=== PATIENT | male | born 1960 | race Caucasian/White ===

== ENCOUNTER 2018-03-03 08:19 | Emergency (ER) | payer BC, OTHER ==
[~2018-03-03] VITALS: Ht 175.3 cm; Wt 70.4 kg
[2018-03-03 08:23] VITALS: TEMP 36.4; Ht 175.3 cm; Wt 70.4 kg
[2018-03-03] MEDS ORDERED: SODIUM CHLORIDE 0.9% 1000ML 1,000 ML IV STA ×2 (08:56→10:46)
[2018-03-03 09:07] LABS: BASO % 0.5 %; BASO ABS # 0.03 K/uL (0-0.2); EOS % 1.9 %; EOS ABS # 0.12 K/uL (0-0.5); HEMATOCRIT 45.5 % (42-52); HEMOGLOBIN 16.1 g/dL (14.0-18.0); IG# 0.05 K/uL (0.00-0.02); LYMPH % 21.2 %; LYMPH ABS # 1.36 K/uL (1.2-3.4); MEAN CELL VOLUME 89.6 fL (80-100); MEAN CORPUSCULAR HEMOGLOBIN 31.7 pg (25-34); MEAN CORPUSCULAR HGB CONC 35.4 g/dl (32-36); MEAN PLATELET VOLUME 10.5 fL (7.4-10.4); MONO % 7.5 %; MONO ABS # 0.48 K/uL (0.11-0.59); NEUT % 68.1 %; NEUT ABS # 4.39 K/uL (1.4-6.5); PLATELET COUNT 226 K/uL (130-400); RED CELL DISTRIBUTION WIDTH CV 12.4 % (11.5-14.5); RED CELL DISTRIBUTION WIDTH SD 40.7 fL (36.4-46.3); WHITE BLOOD COUNT 6.43 K/uL (4.8-10.8)
[2018-03-03 09:15] LABS: CREATININE 0.96 mg/dl (0.60-1.40)
--- NOTE | 2018-03-03 11:55 | EMERGENCY ROOM VISIT NOTE ---
History Report prepared by Keyla: Brigida Morris Under the Supervision of: Dr. Dave Christian D.O. First contact with patient: 08:29 Chief Complaint: URINARY SYMPTOMS Stated Complaint: CANNOT PEE History of Present Illness The patient is a 57 year old male who presents to the Emergency Room with complaints of persistent urinary retention which began this morning. He reports that today when he woke up, he felt like he needed to urinate but was unable to. The patient states that the last time he urinated was last night at about 2100. He denies any other urinary symptoms. The patient mentioned that for the past several weeks, he has been experiencing some bleeding after sexual intercourse, noting that he had similar symptoms a few years ago but his urologist did not diagnose him with anything. Source of History: patient Onset: this morning Position: other (genitourinary) Quality: other (urinary retention) Timing: other (persistent) Associated Symptoms: No urinary symptoms Review of Systems See HPI for pertinent positives & negatives. A total of 10 systems reviewed and were otherwise negative. Past Medical & Surgical Surgical Problems: (1) Cataract Family History Patient reports no known family medical history. No pertinent family history. Social History Smoking Status: Never Smoker Smokeless Tobacco Use: No Alcohol Use: none Drug Use: none Marital Status: Housing Status: lives with family Occupation Status: employed Current/Historical Medications No Active Prescriptions or Reported Meds Allergies Coded Allergies: Penicillins (Unverified Adverse Reaction, Unknown, UNKNOWN, 03/03/18) Physical Exam Vital Signs Date Time Temp Pulse Resp B/P (MAP) Pulse Ox O2 Delivery O2 Flow Rate FiO2 03/03/18 10:25 63 120/68 98 Room Air 03/03/18 08:23 36.4 79 18 158/84 99 Room Air Physical Exam CONSTITUTIONAL/VITAL SIGNS: Reviewed / noted above. GENERAL: Non-toxic in appearance. INTEGUMENTARY: Warm, dry, and [place]. HEAD: Normocephalic. EYES: without scleral icterus or trauma. ENT/OROPHARYNX: clear and moist. LYMPHADENOPATHY/NECK: Is supple without lymphadenopathy or meningismus. RESPIRATORY: Lungs clear and equal. CARDIOVASCULAR: Regular rate and rhythm. GI/ABDOMEN: Soft and nontender. No organomegaly or pulsatile mass. No rebound or guarding. Normal bowel sounds. EXTREMITIES: Warm and well perfused. BACK: No CVA tenderness. NEUROLOGICAL: Intact without focal deficits. PSYCHIATRIC: normal affect. MUSCULOSKELETAL: Normally developed with good muscle tone. Medical Decision & Procedures Laboratory Results 03/03/18 08:40 Red Blood Count 5.08, Mean Corpuscular Volume 89.6, Mean Corpuscular Hemoglobin 31.7, Mean Corpuscular Hemoglobin Concent 35.4, Mean Platelet Volume 10.5, Neutrophils (%) (Auto) 68.1, Lymphocytes (%) (Auto) 21.2, Monocytes (%) (Auto) 7.5, Eosinophils (%) (Auto) 1.9, Basophils (%) (Auto) 0.5, Neutrophils # (Auto) 4.39, Lymphocytes # (Auto) 1.36, Monocytes # (Auto) 0.48, Eosinophils # (Auto) 0.12, Basophils # (Auto) 0.03 03/03/18 08:40 Test 03/03/18 08:40 03/03/18 08:55 White Blood Count 6.43 K/uL (4.8-10.8) Red Blood Count 5.08 M/uL (4.7-6.1) Hemoglobin 16.1 g/dL (14.0-18.0) Hematocrit 45.5 % (42-52) Mean Corpuscular Volume 89.6 fL (80-100) Mean Corpuscular Hemoglobin 31.7 pg (25-34) Mean Corpuscular Hemoglobin Concent 35.4 g/dl (32-36) Platelet Count 226 K/uL (130-400) Mean Platelet Volume 10.5 fL (7.4-10.4) Neutrophils (%) (Auto) 68.1 % Lymphocytes (%) (Auto) 21.2 % Monocytes (%) (Auto) 7.5 % Eosinophils (%) (Auto) 1.9 % Basophils (%) (Auto) 0.5 % Neutrophils # (Auto) 4.39 K/uL (1.4-6.5) Lymphocytes # (Auto) 1.36 K/uL (1.2-3.4) Monocytes # (Auto) 0.48 K/uL (0.11-0.59) Eosinophils # (Auto) 0.12 K/uL (0-0.5) Basophils # (Auto) 0.03 K/uL (0-0.2) RDW Standard Deviation 40.7 fL (36.4-46.3) RDW Coefficient of Variation 12.4 % (11.5-14.5) Immature Granulocyte % (Auto) 0.8 % Immature Granulocyte # (Auto) 0.05 K/uL (0.00-0.02) Anion Gap 7.0 mmol/L (3-11) Est Creatinine Clear Calc Drug Dose 82.5 ml/min Estimated GFR () 99.9 Estimated GFR (Non- 86.2 BUN/Creatinine Ratio 19.6 (10-20) Calcium Level 9.0 mg/dl (8.5-10.1) Urine Color BROWN Urine Appearance CLOUDY (CLEAR) Urine pH 6.0 (4.5-7.5) Urine Specific [place] 1.020 (1.000-1.030) Urine Protein 2+ (NEG) Urine Glucose (UA) NEG (NEG) Urine Ketones TRACE (NEG) Urine Occult Blood 3+ (NEG) Urine Nitrite NEG (NEG) Urine Bilirubin NEG (NEG) Urine Urobilinogen NEG (NEG) Urine Leukocyte Esterase NEG (NEG) Urine RBC >30 /hpf (0-4) Urine WBC 1-5 /hpf (0-5) Urine Epithelial Cells 10-20 /lpf (0-5) Urine Bacteria NEG (NEG) Laboratory results as stated above per my review. Medications Administered Medications (Trade) Dose Ordered Sig/Amalia Route Start Time Stop Time Status Last Admin Dose Admin Sodium Chloride 1,000 ml @ 999 mls/hr Q1H1M STAT IV 03/03/18 08:56 03/03/18 09:56 DC 03/03/18 08:56 999 MLS/HR Sodium Chloride 1,000 ml @ 999 mls/hr Q1H1M STAT IV 03/03/18 10:46 03/03/18 11:46 DC 03/03/18 10:46 999 MLS/HR ED Course 0831: Previous medical records were reviewed. The patient was evaluated in room B12. A complete history and physical examination was performed. 0856: Ordered Sodium Chloride 1000ml @ 999 mls/hr IV. 1046: Ordered Sodium Chloride 1000ml @ 999 mls/hr IV. Medical Decision The patient is a 57 year old male who presents to the ED with complaints of urinary retention. His symptoms are concerning for urinary tract infection, bladder or prostate cancer, prostate enlargement, urethral trauma, kidney infection, and kidney stones. This is a 57-year-old male who presents to the ED with a chief complaint of urinary retention. The patient reports that he developed symptoms this morning. Last night he had intercourse with his and developed the symptoms thereafter. He has had hematuria following intercourse for some time. This was intermittent in nature. He has seen a urologist for this in the past and has been told it was nothing serious. The patient developed urinary retention following the episode last night. He had 750 cc of urine in the bladder on bladder scan. A Velasquez catheter drained about that much urine that was brownish in color and then became slightly light red in color. The urine did not show to suggest infection but revealed 3+ blood. CBC and PRP were normal and a glucose is 127. The patient was given a second liter of fluid and a Velasquez catheter was removed to see if the patient was able to urinate while here. He again was having urinary retention and a catheter was replaced and the patient was discharged with this. We contacted the [facility] urology group who will call him with an appointment for next week. The patient is felt to be stable for discharge. Medication Reconcilliation Current Medication List: was personally reviewed by me Blood Pressure Screening Patient's blood pressure: Normal blood pressure Blood pressure disposition: Did not require urgent referral Impression Primary Impression: Urinary retention Additional Impression: Hematuria Scribe Attestation The scribe's documentation has been prepared under my direction and personally reviewed by me in its entirety. I confirm that the note above accurately reflects all work, treatment, procedures, and medical decision making performed by me. Departure Information Dispostion Home / Self-Care Prescriptions No Active Prescriptions or Reported Meds Referrals Lili Arreaga MD Forms HOME CARE DOCUMENTATION FORM, IMPORTANT VISIT INFORMATION Patient Instructions ED Catheter Care Eileen Velasquez [facility] Additional Instructions Follow-up with [facility] urology next week. They will contact you with an appointment. Problem Qualifiers
[2018-03-03 12:24] VITALS: BP 129/68; PULSE 71; O2SAT 99
== END 2018-03-03 12:22 | disposition home or self-care (01) ==
LOC: C.EDB 08:20
DX: R33.9 Retention of urine, unspecified (principal); R31.9 Hematuria, unspecified; Z88.0 Allergy status to penicillin

== ENCOUNTER 2018-03-04 11:16 | Emergency (ER) | payer BC ==
[~2018-03-04] VITALS: Ht 175.3 cm; Wt 70.5 kg
[2018-03-04 11:18] VITALS: TEMP 36.5; Ht 175.3 cm; Wt 70.5 kg
[2018-03-04 12:29] VITALS: BP 148/60; PULSE 70; O2SAT 99
--- NOTE | 2018-03-04 15:24 | EMERGENCY ROOM VISIT NOTE ---
ED Visit Note First contact with patient: 11:22 CHIEF COMPLAINT: Unable to urinate. HISTORY OF PRESENT ILLNESS: Mr. Vaughn is a 57-year-old white male who ambulates into the ED accompanied by his complaining of inability to urinate. Historically patient was seen in this emergency department yesterday for similar symptoms. A Velasquez catheter was placed and laboratory testing was performed; all his laboratory tests were normal. He was discharged home in stable condition and a follow-up appointment with urology was made for this coming Tuesday. Patient reports then this morning of few hours prior to arrival at the hospital he started developing centralized lower abdominal pain and distention. He attempted multiple efforts to relieve himself and was unsuccessful. He goes on to report that on the drive here he was able to urinate and relieved his discomfort. On my initial evaluation patient was pain and symptom-free. The only thing he has noted was the passage of some small clots in his urine. He denies fevers, chills, sweats, skin eruptions, skin color changes, upper respiratory tract symptoms, chest pain, abdominal pain, nausea/vomiting, back/ flank pain, rectal/genital paresthesias, bowel dysfunction, diarrhea. REVIEW OF SYSTEMS: As noted above in History of Present Illness; all body systems reviewed with the patient and found to be negative unless noted above. PAST MEDICAL HISTORY: Status post cataract removal. CURRENT MEDICATION: Patient denies. ALLERGIES TO MEDICATION: Penicillin. SOCIAL HISTORY: Patient is currently employed; he feels safe in his home environment; he admits to tobacco and alcohol use. PHYSICAL EXAM: Vital Signs: Date Time Temp Pulse Resp B/P (MAP) Pulse Ox O2 Delivery O2 Flow Rate FiO2 03/04/18 12:29 70 20 148/60 99 03/04/18 11:18 36.5 87 18 151/82 97 Room Air GENERAL: 57-year-old male in no acute distress, nontoxic-appearing, afebrile and hemodynamically stable. NEUROLOGICAL: Awake, alert and oriented to person, place and time. Answering questions appropriately and following commands. Normal gait. Good hand eye coordination. SKIN: Warm, dry and pink. No soft tissue eruptions or trauma noted. HEENT: Atraumatic and normocephalic. BACK: No tenderness over the bony spine. No CVA tenderness. THORAX: Lungs sounds are clear to auscultation and equal bilaterally with symmetrical chest wall. ABDOMEN: Flat, soft and nontender. Positive bowel sounds in all quadrants. No guarding, rigidity or organomegaly. EXTREMITIES: Moves all extremities well on command and with purpose. All distal neurovascular statuses are intact and equal bilaterally. No calf tenderness or cords. EMERGENCY DEPARTMENT COURSE: Patient is assessed as noted above. Patient's medication list was reviewed. Bladder Scan: 175 mL. Patient's catheter was irrigated with 500 mL of normal saline; 500 mL of saline was returned. Patient's case was reviewed with Dr. Feliz; we agreed on diagnostic approach, treatment, disposition and plan. Patient was educated about today's findings and instructed on his treatment plan ; he verbalized understanding and agreement with this plan per CLINICAL IMPRESSION: Acute urinary retention DISPOSITION: Patient discharged home in stable condition accompanied by his ; prior to departure he was reassessed and remained pain and symptom-free. PLAN: Patient was encouraged to continue medications. Patient was encouraged to keep his upcoming appointment with urology on Tuesday for definitive care and treatment. Patient was encouraged to continue to stay well-hydrated with increased clear fluids. Patient was encouraged return the ED for lower abdominal distention, fevers, back/flank pain, vomiting or any new/concerning symptoms.
[2018-03-05] MEDS ORDERED: CIPR-255 PO (14:35)
[2018-03-05] MEDS ORDERED: TAMS0.4C38 PO (14:35)
== END 2018-03-04 12:29 | disposition home or self-care (01) ==
LOC: C.EDB 11:17
DX: R33.9 Retention of urine, unspecified (principal); Z98.49 Cataract extraction status, unspecified eye; Z88.0 Allergy status to penicillin; Z72.0 Tobacco use

== ENCOUNTER 2018-03-05 13:05 | Emergency (ER) | payer BC ==
[~2018-03-05] VITALS: Ht 175.3 cm; Wt 69.3 kg
[2018-03-05 13:09] VITALS: TEMP 36.5; Ht 175.3 cm; Wt 69.3 kg
[2018-03-05] MEDS ORDERED: CIPROFLOXACIN 500 MG TAB PO STA (13:22)
[2018-03-05] MEDS ORDERED: TAMSULOSIN HCL 0.4 MG CAP PO ONE (13:30)
[2018-03-05] MEDS ORDERED: CIPROFLOXACIN 500MG HOME PACK PO ONE (13:30)
[2018-03-05] MEDS ORDERED: CIPR-255 PO (14:35)
[2018-03-05] MEDS ORDERED: TAMS0.4C38 PO (14:35)
[2018-03-05 14:58] VITALS: BP 141/82; PULSE 66; O2SAT 98
--- NOTE | 2018-03-05 15:40 | EMERGENCY ROOM VISIT NOTE ---
History Report prepared by Keyla: William Brown Under the Supervision of: Dr. Vishnu Feliz M.D. First contact with patient: 13:14 Chief Complaint: OTHER COMPLAINT Stated Complaint: CATHETER IS BLOCKED-PT WAS HERE LAST 3 DAYS History of Present Illness The patient is a 57 year old male who presents to the Emergency Room with complaints of a constant backed up Velasquez catheter for the past 2 hours. Patient states that he has seen relatively "clear" urine with the catheter but states that blood is still present. Patient states that he got the catheter 2 days ago because he was unable to urinate. He states that this is the first time that he has had a catheter.He adds that he sees blood in his urine after having sex. Patient states that he has an appointment with Dr. Arreaga tomorrow. He denies taking any current medications. Pt denies LOC, headache, fevers, chills, diaphoresis, visual changes, neck pain, chest pain, breathing difficulties, nausea, vomiting, abdominal pain, back pain, numbness, weakness, lymphadenopathy , rash, or other complaints. Source of History: patient Onset: 2 days ago Position: other (Bladder) Timing: constant Modifying Factors (Relieving): other (None) Associated Symptoms: + urinary symptoms Review of Systems See HPI for pertinent positives and negatives. A total of six systems were reviewed and were otherwise negative. Past Medical & Surgical Surgical Problems: (1) Cataract Family History Diabetes mellitus Social History Smoking Status: Former Smoker Alcohol Use: none Drug Use: none Marital Status: Housing Status: lives with family Occupation Status: employed Current/Historical Medications Scheduled Ciprofloxacin Hcl (Cipro), 500 MG PO BID Tamsulosin Hcl (Flomax), 0.4 MG PO DAILY Allergies Coded Allergies: Penicillins (Unverified Adverse Reaction, Unknown, UNKNOWN, 03/03/18) Physical Exam Vital Signs Date Time Temp Pulse Resp B/P (MAP) Pulse Ox O2 Delivery O2 Flow Rate FiO2 03/05/18 14:58 66 16 141/82 98 03/05/18 13:09 36.5 84 18 141/88 98 Room Air Physical Exam GENERAL: Awake, alert, well-appearing, in no distress HENT: Normocephalic, atraumatic. Oropharynx unremarkable. EYES: Normal conjunctiva. Sclera non-icteric. NECK: Supple. No nuchal rigidity. FROM. No masses. RESPIRATORY: Clear to auscultation. No wheezes. No rales. Normal respiratory effort. CARDIAC: Normal rate. Normal rhythm. No murmurs. No rubs. Extremities warm and well perfused. Pulses equal. No JVD. GI: Soft, non-distended. Mild suprapubic tenderness to palpation. No rebound or guarding. No masses. : Velasquez catheter in place. [place] tinged urine in Velasquez bag. Normal male genitalia. MUSCULOSKELETAL: Atraumatic. Chest examination reveals no tenderness. The back is symmetrical on inspection without obvious abnormality. There is no CVA tenderness to palpation. No joint edema. LOWER EXTREMITIES: Calves are equal size bilaterally and non-tender. No edema. No discoloration. NEURO: Normal sensorium. No sensory or motor deficits noted. SKIN: No rash or jaundice noted. Medical Decision & Procedures Medications Administered Medications (Trade) Dose Ordered Sig/Amalia Route Start Time Stop Time Status Last Admin Dose Admin Ciprofloxacin (Cipro 500MG Home Pack) 1 homepack UD ONCE PO 03/05/18 13:30 03/05/18 13:31 DC 03/05/18 13:42 1 HOMEPACK Ciprofloxacin (Cipro Tab) 500 mg NOW STAT PO 03/05/18 13:22 03/05/18 13:26 DC 03/05/18 13:42 500 MG Tamsulosin HCl (Flomax Cap) 0.4 mg NOW ONCE PO 03/05/18 13:30 03/05/18 13:31 DC 03/05/18 13:42 0.4 MG ED Course 1311: The patient was evaluated in room A10. A complete history and physical exam was performed. 1322: Ciprofloxacin 500mg PO 1330: Flomax Cap 0.4mg PO and Ciprofloxacin 1 homepack PO 1415: I reevaluated the patient. Velasquez catheter was placed. Bloody urine and blood clots were removed. Patient was irrigated and will be discharged to see urology tomorrow. I discussed results and discharge instructions with him. He verbalized understanding and agreement. Medical Decision The patient was inspected emergency department complaining of a blocked catheter. He has had 2 prior visits for the same. The patient had unremarkable blood work the first visit. The patient had a bladder scan performed. He had his catheter changed to a slightly larger 18 [place] catheter. Moderate hematuria and clots were noted. This was irrigated without difficulty. He was treated with Cipro. He is also given Flomax. I did send a urine culture as there was not one pending. The patient has an appointment tomorrow morning with urology. Catheter instructions were discussed. The patient and feel comfortable. They were pleased with the treatment. He was discharged in stable condition. I did advise him to discuss further imaging of his urinary system due to this hematuria. I gave my usual and customary discussion regarding this issue. Medication Reconcilliation Current Medication List: was personally reviewed by me Blood Pressure Screening Patient's blood pressure: Elevated blood pressure Blood pressure disposition: Referred to PCP Impression Primary Impression: Urinary retention Scribe Attestation The scribe's documentation has been prepared under my direction and personally reviewed by me in its entirety. I confirm that the note above accurately reflects all work, treatment, procedures, and medical decision making performed by me. Departure Information Dispostion Home / Self-Care Prescriptions Ciprofloxacin Hcl (CIPRO) 500 Mg Tab 500 MG PO BID, #10 TAB Prov: Vishnu Feliz MD 03/05/18 Tamsulosin Hcl (FLOMAX) 0.4 Mg Cap 0.4 MG PO DAILY, #10 CAP Prov: Vishnu Feliz MD 03/05/18 Referrals No Doctor, Assigned (PCP) Forms HOME CARE DOCUMENTATION FORM, IMPORTANT VISIT INFORMATION, WORK / SCHOOL INSTRUCTIONS Patient Instructions My [facility] Additional Instructions Ciprofloxacin 500mg: Take one pill twice daily for 5 days for your urine. All antibiotics can cause diarrhea. If this occurs and you feel worse or it does not resolve in 1-2 days follow up with your doctor or return to the Emergency Department as this could be signs of serious underlying problems. Any medication can cause an allergic reaction or complication, stop the pills immediately and return to the ER for rash, hives, breathing difficulties, tendon pain, tendon injury, or swelling. Flomax 0.4mg: one pill daily until directed otherwise by your urologist. Acetaminophen(Tylenol) may be used for fever or pain. Use 1000mg every six hours as needed. Avoid using more than 3000mg in a 24 hour period. Continue current medications. Care for the catheter as discussed. Do not pull on the catheter. Use the leg bag during the day and the large bag at night when you are sleeping. Drain the bag frequently. Do not let it fill completely. Return to the emergency department for fevers, abdominal pain, catheter problems , or as needed. Follow up with your urologist appointment tomorrow.
== END 2018-03-05 14:59 | disposition home or self-care (01) ==
LOC: C.EDB 13:06 → C.EDA 14:59
DX: R33.9 Retention of urine, unspecified (principal); Z87.891 Personal history of nicotine dependence; Z88.0 Allergy status to penicillin; Z83.3 Family history of diabetes mellitus